=== PATIENT | male | born 1965 | race Caucasian/White ===

== ENCOUNTER 2017-01-09 07:19 | Day surgery (SDC) | payer OTHER ==
[~2017-01-09 07:19] MED LIST: Buffered Lidocaine 0.9% SYRIN* 5 ML/SYR SYRINGE INTRADERM ONE
[2017-01-09] MEDS ORDERED: fentaNYL* 50 MCG/ML 2 ML VIAL (100 MCG VIAL) ONE (09:47)
[2017-01-09] MEDS ORDERED: Midazolam* 1 MG/ML 5 ML VIAL (5 MG) ONE (09:47)
[2017-01-09] MEDS ORDERED: Bupivacaine 0.25% SDV* 30 ML ONE (10:01)
[2017-01-09] MEDS ORDERED: Ondansetron ODT TAB* 4 MG PO PRN (10:34)
[2017-01-09] MEDS ORDERED: Acetaminophen TAB* 325 MG PO PRN (10:34)
[2017-01-09] MEDS ORDERED: Ibuprofen TAB* 600 MG PO PRN (10:34)
[2017-01-09 11:06] VITALS: BP 107/66
--- NOTE | 2017-01-10 02:22 | OP ---
DATE OF OPERATION: 01/09/17 - [facility] DATE OF : 65 SURGEON: Ramiro Jade MD SEPARATOR OPERATOR: REYNA Boswell ANESTHESIOLOGIST: Dr. Dominguez. ANESTHESIA: Local MAC. PRE-OP DIAGNOSIS: Right carpal tunnel syndrome. POST-OP DIAGNOSIS: Right carpal tunnel syndrome. OPERATIVE PROCEDURE: Right open carpal tunnel release. INDICATIONS: Clifton has had progressive carpal tunnel syndrome. We had talked about risks and benefits in the office. He had wanted to proceed with surgery. EBL: 2 mL. COMPLICATIONS: None. FINDINGS: As expected. DESCRIPTION OF PROCEDURE: Clifton was seen in the preoperative holding area. The correct site, side, and procedure were identified. We came back to the operating room, where the arm was prepped and draped in the usual fashion. A formal time-out was performed. I then infiltrated the operative area with 0.25 % plain Marcaine. We then finished setting up and the arm was exsanguinated and the tourniquet inflated to 250 mmHg. I then made a longitudinal incision 2 to 3 cm in length in a standard location for an open carpal tunnel release. Dissection was carried down through the subcutaneous tissue and palmar fascia to expose the transverse carpal ligament. The ulnar artery was visualized exiting Guyon's canal. Transverse carpal ligament was released just off the radial aspect of the hook of the hamate. The release was carried out distally to the extent possible and then attention was turned proximally. I released the subcutaneous tissue. I then went ahead and retracted it out volarly and ulnarly with a Sharmaine retractor. I then was able to directly visualize the rest of the transverse carpal ligament and distal antebrachial fascia. I went ahead and released this with my tenotomy scissors just off the difficult location of the palmaris longus tendon. I then checked my release proximally, it looked very good. There was a little more work to do, so I went back distally and released a few more fibers and a little bit more of the palmar fascia until there was absolutely no compression on the nerve. The ulnar artery and superficial palmar arch were identified and protected. Once I was satisfied with the decompression, I went ahead and irrigated out the wound and the skin was closed with 4-0 nylon suture. Wound was dressed with Xeroform, 4x4's, sterile Webril, and an Toro bandage. Tourniquet was deflated. The hand pinked up immediately. He was then taken to the recovery room in stable condition. [id number]/[facility] #: [id number] [place]
== END 2017-01-09 11:18 | disposition home or self-care (01) ==
LOC: OREAST 07:19
PROVIDERS: ATTEND Orthopaedic Surgery Hand Surgery
DX: G56.01 Carpal tunnel syndrome, right upper limb (principal); I10 Essential (primary) hypertension
CPT/HCPCS: J2250; J3010